=== PATIENT | female | born 1960 | race Caucasian/White ===

== ENCOUNTER → 2017-12-21 | Outpatient (CLI) | payer BC | LOC: MC.RAD 08:08 | DX: N60.81 Other benign mammary dysplasias of right breast (principal); R92.1 Mammographic calcification found on diagnostic imaging of breast | CPT/HCPCS: 30635 ==

== ENCOUNTER 2019-04-12 10:32 | Inpatient (IN) | payer BC ==
[~2019-04-12] VITALS: Ht 167.6 cm; Wt 68.8 kg
[2019-05-15] VITALS (11 sets, daily range): BP systolic 122–152; BP diastolic 73–89; PULSE 63–87; TEMP 97.4–98.3
[2019-05-15] MEDS ORDERED: VITAMIND3 5000 PO (06:19)
[2019-05-15] MEDS ORDERED: PROBIOTIC FORMU1 CAP PO (06:19)
[2019-05-15] MEDS ORDERED: MAGONATE M54 MG/5 ML PO (06:21)
[2019-05-15] MEDS ORDERED: GINSENG PO (06:24)
[2019-05-15] MEDS ORDERED: MULTI VITAMINS1 TAB PO (06:26)
[2019-05-15] MEDS ORDERED: AMICAR1000 MG PO (06:28)
[2019-05-16 00:14] VITALS: BP 123/79; PULSE 71; TEMP 98.5
[2019-05-16 04:00] VITALS: BP 137/87; PULSE 59; TEMP 97.7
[2019-05-16 07:40] VITALS: BP 139/80; PULSE 72; TEMP 97.6
[2019-05-16 12:49] VITALS: BP 142/86; PULSE 64; TEMP 98
== END 2019-05-16 15:07 | disposition home or self-care (01) | DRG 748 ==
LOC: SURG 05-15 05:19 → INPTSU 05-15 05:19 → SURG 05-15 07:30
PROVIDERS: ADMIT Urology
PROC: 0TNB4ZZ Release Bladder, Percutaneous Endoscopic Approach (ICD-10-PCS; 2019-05-15)
PROC: 0UUG4JZ Supplement Vagina with Synthetic Substitute, Percutaneous Endoscopic Approach (ICD-10-PCS; 2019-05-15)
PROC: 8E0W4CZ Robotic Assisted Procedure of Trunk Region, Percutaneous Endoscopic Approach (ICD-10-PCS; 2019-05-15)
PROC: 0USG4ZZ Reposition Vagina, Percutaneous Endoscopic Approach (ICD-10-PCS; principal; 2019-05-15 07:30)
DX: N81.10 Cystocele, unspecified (principal); N81.6 Rectocele; K66.0 Peritoneal adhesions (postprocedural) (postinfection); M19.90 Unspecified osteoarthritis, unspecified site; Z86.718 Personal history of other venous thrombosis and embolism; Z90.710 Acquired absence of both cervix and uterus; Z87.891 Personal history of nicotine dependence
CPT/HCPCS: A4314; A9284; C1781; J0330; J0690; J1100; J1885; J2405; J2550; J2704; J3010; J7120